=== PATIENT | male | born 1995 | race Caucasian/White ===

== ENCOUNTER 2018-11-14 22:00 | Emergency (ER) | payer OTHER ==
[~2018-11-14] VITALS: Ht 185.4 cm; Wt 90.7 kg
[2018-11-14 22:05] VITALS: BP_SYST 134
--- NOTE | 2018-11-14 22:05 | NUR ---
Patient triaged and placed in waiting room. VSS and patient appears in no acute distress at this time. Accompanied by A FRIEND, awaiting available bed, and MD notified of need for MSE.
--- NOTE | 2018-11-14 22:57 | NUR ---
Patient to ER bed 6 to gown for evaluation. Side rails up. Report given to TIKA DE LEÓN.
--- NOTE | 2018-11-14 23:00 | NUR ---
Pt C/O laceration the LT brow. Pt states he was cutting his eyebrow with a razor and accidently cut himself. Pt is holding pressure to the area, bleeding is mild. Denies any pain or any other symptoms at this time. Will continue to monitor.
[2018-11-14] MEDS ORDERED: LIDOCAINE/EPI 1% 1:100000 20 ML VIAL INJ ONE (23:45)
[2018-11-14] MEDS ORDERED: DIPH-TET-PERTUS Vaccine 0.5 ML VIAL (ADACEL) I.M. ONE (23:45)
--- NOTE | 2018-11-15 00:18 | NUR ---
Dr. Pichardo at bedside for laceration repair.
[2018-11-15 00:39] VITALS: BP_SYST 122
--- NOTE | 2018-11-15 00:39 | NUR ---
Patient given written and verbal discharge instructions and verbalizes understanding. ER MD discussed with patient the results and treatment provided. Patient in stable condition. ID arm band removed. Rx of zero given. Patient educated on pain management and to follow up with PMD. Pain Scale 0/10. Opportunity for questions provided and answered. Medication side effect fact sheet provided.
== END 2018-11-15 00:39 | disposition home or self-care (01) ==
LOC: SED 22:00
DX: S01.112A Laceration without foreign body of left eyelid and periocular area, initial encounter (principal); W26.8XXA Contact with other sharp object(s), not elsewhere classified, initial encounter; Y93.89 Activity, other specified; Y92.89 Other specified places as the place of occurrence of the external cause; Y99.8 Other external cause status
CPT/HCPCS: 90715; 99284